=== PATIENT | male | born 1970 | race Hispanic/Latino ===

== ENCOUNTER 2023-03-10 16:59 | Emergency (ER) | payer SELFPAY ==
--- OUTSIDE RECORDS SUMMARY | 2023-03-10 17:02 | XMS REPORT | Continuity of Care Document ---
:1970 Author Organization [facility] t Address [address] [facility] [address] [place] [address] Care Team Providers Name Role Phone DERIAN RODRÍGUEZ Primary Care Physician Unavailable MARTIN [address] Attending Clinician Unavailable DERIAN RODRÍGUEZ Attending Clinician Unavailable MILTON GONZALEZ Attending Clinician Unavailable JAMES JEAN Attending Clinician Unavailable EVONNE OSEGUERA Attending Clinician Unavailable LEA MOLINA Attending Clinician Unavailable TU GUPTA Attending Clinician Unavailable ANNABELLA WEISS Attending Clinician Unavailable VIVIAN WHALEN Attending Clinician Unavailable SAHIL CORTES Attending Clinician Unavailable AURELIA NEWELL Attending Clinician Unavailable MANISHA PERKINS Attending Clinician UnavailALLA Cardoso Attending Clinician Unavailable Payers Payer Name Policy Type Policy Number Effective Date Expiration Date S ource Problems This patient has no known problems. Allergies, Adverse Reactions, Alerts This patient has no known allergies or adverse reactions. Social History Social Habit Start Date Stop Date Quantity Comments Source Sexual orientation Method ist [facility] Gender identity [facility] History of Social 2019-04-18 2019-04-[address] function 00:00:00 00:00:00 Hospital Tobacco use and 2018-12-04 2018-12-04 Smokeless [facility]oroastrianism exposure 00:00:00 00:00:00 tobacco non-user Hospital Alcohol intake 2018-12-04 2018-12-04 Current [facility]oroastrianism 00:00:00 00:00:00 non-drinker of Hospital alcohol (finding) Sex Assigned At [birth year] [facility] 00:00:00 00:00:00 Hospital Smoking Status Start Date Stop Date Source Never smoked tobacco [facility] Medications This patient has no known medications. Procedures This patient has no known procedures. Encounters Start End Encounter Admission Attending Care Care Encounter Source Date/Time Date/Time Type Type Clinicians Facility Department ID 2023-02-21 2023-02-21 Outpatient MILLICENTJUSTICE, [facility] [id number] [place] 00:00:00 00:00:00 [facility] 2023-02-20 2023-02-20 [facility] [id number] [place] 00:00:00 00:00:00 DERIAN Odell 2022-12-16 2022-12-16 Outpatient [facility] [id number] [place] 00:00:00 00:00:00 [facility] 2022-12-13 2022-12-13 Outpatient [facility] [id number] [place] 00:00:00 00:00:00 [facility] 2022-12-13 2022-12-13 Outpatient [facility] [id number] [place] 00:00:00 00:00:00 [facility] 2022-12-13 2022-12-13 [facility] [id number] [place] 00:00:00 00:00:00 [facility] 2022-11-28 2022-11-28 [facility] [id number] [place] 10:07:48 12:15:29 DERIAN Odell 2022-11-28 2022-11-28 [facility] [id number] [place] 11:08:55 11:42:58 DERIAN Healt 2022-11-28 2022-11-28 Outpatient [facility] [id number] [place] 10:22:05 11:14:07 [facility] 2022-11-25 2022-11-25 [facility] [id number] [place] 00:00:00 00:00:00 [facility] 2022-11-23 2022-11-23 [facility] [id number] [place] 00:00:00 00:00:00 DERIAN Healt 2022-11-03 2022-11-03 [facility] [id number] [place] 00:00:00 00:00:00 DERIAN Healre[facility]undo 2022-10-17 2022-10-17 [facility] [id number] [place] 00:00:00 00:00:00 [facility] 2022-10-05 2022-10-05 Outpatient [facility] [id number] [place] 00:00:00 00:00:00 [facility] 2022-10-04 2022-10-04 Outpatient WAYNERTHIAGO, [facility] [id number] [place] 00:00:00 00:00:00 [facility] 2022-09-19 2022-09-19 Outpatient MARCOS, [facility] [id number] [place] 11:22:38 14:35:07 DERIAN Healt 2022-09-19 2022-09-19 Outpatient ANA ROSA, [facility] [id number] [place] 12:20:23 12:59:48 [facility] 2022-09-19 2022-09-19 Outpatient LAZARD, [facility] [id number] [place] 09:35:59 11:02:53 [facility] 2022-09-05 2022-09-05 Outpatient MARCOS, [facility] [id number] [place] 00:00:00 00:00:00 DERIAN Healt 2022-09-02 2022-09-02 Outpatient 3 MARCOS, [facility] [id number] [place] 09:28:01 13:04:24 [facility] 2022-[facility]-02 2022-09-02 Outpatient OKOH, [facility] [id number] [place] 11:53:32 11:53:36 [facility] 2022-09-02 2022-09-02 Outpatient MARCOS, [facility] [id number] [place] 00:00:00 00:00:00 DERIAN Healt 2021-03-02 2021-03-02 Outpatient ALONSO [facility] [id number] [place] 00:00:00 00:00:00 [facility] 2021-02-23 Outpatient ANNABELLA WEISS [facility] [id number] [place] 10:20:58 11:16:05 [facility] 2021-02-23 2021-02-23 Outpatient ANNABELLA WEISS [facility] [id number] [place] 08:56:28 09:52:40 [facility] 2021-02-23 2021-02-23 Outpatient ANNABELLA WEISS [facility] [id number] [place] 00:00:00 00:00:00 [facility] 2021-02-22 2021-02-22 Outpatient KOBY, [facility] [id number] [place] 10:54:45 [facility]09:[facility] 2021-01-15 Emergency SOPHIA, [facility] [id number] [place] 02:51:00 04:05:00 [facility] 2021-01-04 2021-01-04 Emergency REECE, [facility] [id number] [place] 00:47:00 11:25:00 [facility] 2021-01-04 2021-01-04 [facility] [id number] [place] 06:44:00 06:44:[facility] 2021-01-04 Emergency REECE, [facility] [id number] [place] 02:55:32 02:55:32 [facility] 2020-11-10 2020-11-10 Emergency KURTZ, [facility] [id number] [place] 17:49:00 23:32:00 [facility] 2019-10-30 2019-10-30 Outpatient [facility] [id number] [place] 00:00:00 00:00:00 [facility] 2019-10-08 2019-10-08 Outpatient [facility] [id number] [place] 00:00:00 00:00:00 [facility] 2019-10-08 2019-10-08 Outpatient [facility] [id number] [place] 00:00:00 00:00:00 [facility] 2019-08-29 2019-08-29 Outpatient [facility] [id number] [place] 00:00:00 00:00:00 [facility] 2019-08-14 2019-08-14 Outpatient [facility] [id number] [place] 00:00:00 00:00:00 [facility] 2019-07-31 2019-07-31 Outpatient [facility] [id number] [place] 14:28:05 14:28:05 Health 2019-07-22 2019-07-22 Outpatient [facility] [id number] [place] 00:00:00 00:00:00 [facility] 2019-07-20 2019-07-20 Emergency [facility] [id number] [place] 01:31:16 01:31:16 Health 2019-07-19 2019-07-19 Emergency [facility] [id number] [place] 23:25:10 23:25:10 Health 2019-07-19 2019-07-19 Outpatient [facility] [id number] [place] 00:00:00 00:00:00 [facility] 2019-07-17 2019-07-17 Outpatient [facility] [id number] [place] 00:00:00 00:00:00 [facility] 2019-07-17 2019-07-17 Outpatient [facility] [id number] [place] 00:00:00 00:00:00 [facility] 2019-07-16 2019-07-16 Outpatient [facility] [id number] [place] 15:21:20 15:21:20 Health 2019-07-16 2019-07-16 Outpatient [facility] [id number] [place] 13:27:29 13:27:29 Health 2019-07-16 2019-07-16 Outpatient [facility] [id number] [place] 00:00:00 00:00:00 [facility] 2019-07-10 2019-07-10 Outpatient [facility] [id number] [place] 10:26:37 10:26:37 [facility] 2019-07-10 2019-07-10 Outpatient [facility] [id number] [place] 08:40:40 08:40:40 [facility] 2019-07-10 2019-07-10 Outpatient [facility] [id number] [place] 00:00:00 00:00:00 [facility] 2019-06-28 2019-06-28 Emergency [facility] [id number] [place] 13:33:59 13:33:59 Health 2019-06-28 2019-06-28 Emergency [facility] [id number] [place] 13:27:22 13:27:22 Health 2019-06-28 2019-06-28 Emergency [facility] [id number] [place] 13:26:37 13:26:37 [facility] 2019-06-28 2019-06-28 Inpatient [facility] [id number] [place] 12:51:23 12:51:23 Health 2018-12-12 2018-12-12 Outpatient [facility] [id number] [place] 00:00:00 00:00:00 [facility] 2018-11-07 2018-11-07 Outpatient [facility] [id number] [place] 00:00:00 00:00:00 [facility] 2018-11-07 2018-11-07 Outpatient [facility] [id number] [place] 00:00:00 00:00:00 [facility] 2018-11-07 2018-11-07 Outpatient [facility] [id number] [place] 00:00:00 00:00:00 [facility] 2018-10-31 2018-10-31 Outpatient [facility] [id number] [place] 14:49:27 14:49:27 Health 2018-10-30 2018-10-30 Outpatient [facility] [id number] [place] 00:00:00 00:00:00 Health 2018-09-20 2018-09-20 Outpatient [facility] [id number] [place] 14:01:56 14:01:56 Health 2018-07-17 2018-07-17 Outpatient [facility] [id number] [place] 00:00:00 00:00:00 [facility] 2018-07-12 2018-07-12 Outpatient [facility] [id number] [place] 14:38:09 14:38:09 [facility] 2018-06-25 2018-06-25 Outpatient [facility] [id number] [place] 00:00:00 00:00:00 [facility] 2018-06-19 2018-06-19 Outpatient [facility] [id number] [place] 00:00:00 00:00:00 [facility] 2018-06-18 2018-06-18 Outpatient [facility] [id number] [place] 00:00:00 00:00:00 [facility] 2018-06-14 2018-06-14 Outpatient [facility] [id number] [place] 14:49:45 14:49:45 [facility] 2018-06-14 2018-06-14 Outpatient [facility] [id number] [place] 09:39:19 09:39:19 [facility] 2018-06-13 2018-06-13 Outpatient [facility] [id number] [place] 00:00:00 00:00:00 [facility] 2018-05-28 2018-05-28 Outpatient [facility] [id number] [place] 15:08:59 15:08:59 [facility] 2018-04-23 2018-04-23 Outpatient [facility] [id number] [place] 13:43:14 13:43:14 Health 2018-04-23 2018-04-23 Outpatient [facility] [id number] [place] 13:26:14 13:26:14 [facility] 2018-04-23 2018-04-23 Outpatient [facility] [id number] [place] 13:03:05 13:03:05 Health Results Test Description Test Time Test Comments Results Result Comments Source RPR Ser-Titr 2022-09-04 13:17:23 Test Item Value Reference Range Interpretation Comme nts T pallidum Ab Ser Ql Aggl (test code = 50840-4) NEGATIVE Negati ve, Equivocal Reagin+T pallidum IgG+IgM SerPl-Imp (test code = NEGATIVE Negat caroline 93957-2) HHSHIV 1+2 Ab+HIV1 p24 Ag SerPl Ql [id number] 15:06:23 Test Item Value Reference Range Interpretation Comments HIV 1+2 Ab+HIV1 p24 Ag SerPl Ql [place] NEGATIVE Negative (test code = 16351-4) [facility]
[2023-03-10] MEDS ORDERED: HYDROCODONE/APAP 7.5/325 MG TAB ONE (17:32)
--- NOTE | 2023-03-10 17:36 | RAD REPORT ---
EXAM DESCRIPTION: CT - CTHCSPWOC - 03/10/2023 5:20 pm CLINICAL HISTORY: Trauma, head and neck injury. TRAUMA COMPARISON: No comparisons TECHNIQUE: Axial 5 mm thick images of the head were obtained. Axial 2 mm thick images of the cervical spine were obtained with sagittal and coronal reconstruction images generated and reviewed. All CT scans are performed using dose optimization technique as appropriate and may include automated exposure control or mA/KV adjustment according to patient size. FINDINGS: CT HEAD WITHOUT CONTRAST: No acute hemorrhage, hydrocephalus or extra-axial collection is identified.No areas of brain edema or midline shift. Left frontal scalp laceration. The paranasal sinuses and mastoids are clear.The calvarium is intact. CT CERVICAL SPINE WITHOUT CONTRAST: Wedge compression deformities at C3, C4, and C5 appear chronic. No discrete fracture line.No preverte bral soft tissues swelling is identified. IMPRESSION: No acute intracranial or cervical spine findings.
--- NOTE | 2023-03-10 17:37 | RAD REPORT ---
EXAM DESCRIPTION: CT - CTFB CLINICAL HISTORY: TRAUMA COMPARISON: No comparisons TECHNIQUE: Axial 2 mm thick images of the face were obtained with sagittal and coronal reconstructio n images. All CT scans are performed using dose optimization technique as appropriate and may include automated exposure control or mA/KV adjustment according to patient size. FINDINGS: No acute facial bone fracture is seen.The mandible is intact. The globes and orbital contents are grossly unremarkable.The paranasal sinuses and mastoids are clear . Mild ethmoid air cell thickening. Mild circumferential thickening in the maxillary sinuses . IMPRESSION: Negative for facial bone fracture.
[2023-03-10] MEDS ORDERED: MORPHINE 4 MG/ML SYR ONE (17:44)
[2023-03-10] MEDS ORDERED: BUPIVACAINE 0.5% PF 10 ML VIAL ONE (18:00)
--- NOTE | 2023-03-10 18:34 | EDPHYS ---
Physician Documentation [facility] Name: Jerry Dhillon Age: 52 yrs Sex: Male : 1970 Arrival Date: 03/10/2023 Time: 16:59 Bed 12 Private MD: ED Physician Donaldo Caba HPI: 03/10 17:29 This 52 yrs old Male presents to ER via Ambulatory with complaints of Head rt Injury-Adult. 17:29 Patient presents to the ED with a head injury. Patient was opening up in attic door rt when it fell on his head hitting his frontal region. It caused him to fall down to the ground. Denies any neck pain. He states that he was seeing black at that time but denies complete loss of consciousness. Denies other acute complaints at this time. Symptoms are moderate severity, no other aggravating alleviating factors. Historical: - Allergies: 17:03 No Known Allergies; aa5 - PMHx: 17:03 Diabetes mellitus; aa5 - Immunization history:: Last tetanus immunization: unknown. - Social history:: Smoking status: Patient denies any tobacco usage or history of. - Family history:: not pertinent. ROS: 17:29 Constitutional: Negative for fever, chills, and weight loss, Cardiovascular: Negative rt for chest pain, palpitations, and edema, Respiratory: Negative for shortness of breath, cough, wheezing, and pleuritic chest pain, Abdomen/GI: Negative for abdominal pain, nausea, vomiting, diarrhea, and constipation, Psych: Negative for depression, anxiety, suicide ideation, homicidal ideation, and hallucinations. 17:29 Skin: Positive for laceration(s), Negative for erythema. 17:29 Neuro: Positive for headache, Negative for loss of consciousness. Exam: 17:29 Constitutional: This is a well developed, well nourished patient who is awake, alert, rt and in no acute distress. Neck: Trachea midline, no thyromegaly or masses palpated, and no cervical lymphadenopathy. Supple, full range of motion without nuchal rigidity, or vertebral point tenderness. No Meningismus. Chest/axilla: Normal chest wall appearance and motion. Nontender with no deformity. No lesions are appreciated. Cardiovascular: Regular rate and rhythm with a normal S1 and S2. No gallops, murmurs, or rubs. Normal PMI, no JVD. No pulse deficits. Respiratory: Lungs have equal breath sounds bilaterally, clear to auscultation and percussion. No rales, rhonchi or wheezes noted. No increased work of breathing, no retractions or nasal flaring. Abdomen/GI: Soft, non-tender, with normal bowel sounds. No distension or tympany. No guarding or rebound. No evidence of tenderness throughout. MS/ Extremity: Pulses equal, no cyanosis. Neurovascular intact. Full, normal range of motion. Neuro: Awake and alert, GCS 15, oriented to person, place, time, and situation. Cranial nerves II-XII grossly intact. Motor strength 5/5 in all extremities. Sensory grossly intact. Cerebellar exam normal. Normal gait. Psych: Awake, alert, with orientation to person, place and time. Behavior, mood, and affect are within normal limits. 17:29 Head/face: 6 cm laceration to the frontal region, no active bleeding, no other external evidence of trauma. Vital Signs: 17:01 BP 148 / 96; Pulse 86; Resp 18 S; Temp 97.5(TE); Pulse Ox 96% on R/A; Weight 63.5 kg aa5 (R); [place] Coma Score: 17:01 Eye Response: spontaneous(4). Motor Response: obeys commands(6). Verbal Response: aa5 oriented(5). Total: 15. Laceration: 19:16 Wound Repair of 6cm ( 2.4in ) subcutaneous laceration to top of head. Skin/tissue flap rt noted.. No damage to the galea, only appears to violate the skin. Distal neuro/vascular/tendon intact. Anesthesia: Wound infiltrated with 2 mls of 0.5% marcaine. Wound prep: Copious irrigation. Skin closed with 10 [place] using staple gun. Dressed with 4x4's. Patient tolerated well. MDM: 17:04 Patient medically screened. rt 19:16 Differential diagnosis: Hematoma on Laceration of Intracranial bleed- Concussion. Data rt reviewed: vital signs, nurses notes. Independent interpretation of the following test(s) in the Emergency Department CT Scan: My interpretation is No cerebral hemorrhage seen on interpretation of the CT scan images. Care significantly affected by the following chronic conditions: Diabetes. Counseling: I had a detailed discussion with the patient and/or guardian regarding: the historical points, exam findings, and any diagnostic results supporting the discharge/admit diagnosis, radiology results, the need for outpatient follow up. ED course: Up-to-date on tetanus immunization. 03/10 17:10 Order name: CT Head C Spine; Complete Time: 17:41 rt 03/10 17:10 Order name: Facial Bones W/O Con CT; Complete Time: 17:41 rt 03/10 17:10 Order name: Wound Care; Complete Time: 18:23 rt Administered Medications: 17:40 Drug: morphine IM 4 mg Route: IM; Site: left deltoid; ss 18:23 Follow up: Response: No adverse reaction; Pain is decreased; RASS: Alert and Calm (0) ss Disposition Summary: 03/10/23 18:33 Discharge Ordered Location: Home rt Problem: new rt Symptoms: have improved rt Condition: Stable rt Diagnosis - Laceration without foreign body of scalp rt Followup: rt - With: Private Physician - When: 10 - 14 days - Reason: Staple/Suture removal Discharge Instructions: - Discharge Summary Sheet rt - Laceration Care, Adult rt Forms: - Work release form ss - Medication Reconciliation Form rt - Thank You Letter rt - Antibiotic Education rt - Prescription Opioid Use rt - Patient Portal Instructions rt Signatures: Dispatcher [employer] Manda Gutierrez RN RN aa5 Sarah Canales RN RN ss Donaldo Caba MD MD rt
--- NOTE | 2023-03-10 18:34 | ER ---
Nurse's Notes [facility] Name: Jerry Dhillon Age: 52 yrs Sex: Male : 1970 Arrival Date: 03/10/2023 Time: 16:59 Bed 12 Private MD: Diagnosis: Laceration without foreign body of scalp Presentation: 03/10 17:01 Chief complaint: Patient states: attic door opened and hit his head, negative LOC, aa5 states "I was seeing black when it happened". Coronavirus screen: At this time, the client does not indicate any symptoms associated with coronavirus-19. Ebola Screen: Patient denies travel to an Ebola-affected area in the 21 days before illness onset. Mechanism of Injury: resulted from a direct blow, a heavy object. Initial Sepsis Screen: Does the patient meet any 2 criteria? No. Patient's initial sepsis screen is negative. Does the patient have a suspected source of infection? No. Patient's initial sepsis screen is negative. Risk Assessment: Do you want to hurt yourself or someone else? Patient reports no desire to harm self or others. 17:01 Acuity: JONI 3 aa5 17:01 Method Of Arrival: Ambulatory aa5 Historical: - Allergies: 17:03 No Known Allergies; aa5 - PMHx: 17:03 Diabetes mellitus; aa5 - Immunization history:: Last tetanus immunization: unknown. - Social history:: Smoking status: Patient denies any tobacco usage or history of. - Family history:: not pertinent. Screenin:[address] [facility] ED Fall Risk Assessment (Adult) History of falling in the last 3 months, ss including since admission No falls in past 3 months (0 pts). Abuse screen: Denies threats or abuse. Denies injuries from another. Nutritional screening: No deficits noted. Tuberculosis screening: Never had TB. Assessment: 17:45 General: Appears in no apparent distress. comfortable, Behavior is calm, cooperative. ss Neuro: Level of Consciousness is awake, alert, obeys commands, Oriented to person, place, time, situation. Respiratory: Airway is patent Respiratory effort is even, unlabored. Derm: Skin is pink, warm \\T\\ dry. normal. Injury Description: Laceration sustained to top of head is 2.6 to 7.5 cm long, was sustained 30-60 minutes ago. a small amount of bleeding noted at this time. 18:23 Reassessment: Cleaned wound with hibiclens, saline and peroxide to rid of all dried ss blood and debris. Pt tolerated well. Friend remains at bedside. Awaiting for laceration repair. Pain: Complains of pain in top of head Pain currently is 4 out of 10 on a pain scale. Neuro: Level of Consciousness is awake, alert. Vital Signs: 17:01 BP 148 / 96; Pulse 86; Resp 18 S; Temp 97.5(TE); Pulse Ox 96% on R/A; Weight 63.5 kg aa5 (R); [place] Coma Score: 17:01 Eye Response: spontaneous(4). Motor Response: obeys commands(6). Verbal Response: aa5 oriented(5). Total: 15. ED Course: 16:59 Patient arrived in ED. mr 17:00 Donaldo Caba MD is Attending Physician. rt 17:01 Arm band placed on. aa5 17:03 Triage completed. aa5 17:22 CT Head C Spine In Process Unspecified. EDMS 17:22 Facial Bones W/O Con CT In Process Unspecified. EDMS 17:33 Sarah Canales, SILVER is Primary Nurse. ss 17:45 Patient has correct armband on for positive identification. ss 18:50 Assist provider with laceration repair on top of head that was between 2.6 to 7.5 cm ss using sweetie. Set up tray. Performed by Donaldo Caba MD Patient tolerated well. Patient did not have IV access during this emergency room visit. Administered Medications: 17:40 Drug: morphine IM 4 mg Route: IM; Site: left deltoid; ss 18:23 Follow up: Response: No adverse reaction; Pain is decreased; RASS: Alert and Calm (0) ss Medication: 17:45 VIS not applicable for this client. ss Outcome: 18:33 Discharge ordered by . rt 18:50 Discharged to home ambulatory. ss 18:50 Condition: good 18:50 Discharge instructions given to patient, friend, Instructed on discharge instructions, follow up and referral plans. wound care, Demonstrated understanding of instructions, follow-up care. 18:50 Patient left the ED. ss Signatures: Dispatcher [employer] [facility] Dorcas eWbsterManda RN RN aa5 Canales, Sarah, RN RN ss [place], Donaldo, MD MD rt
[2023-03-10 21:37] VITALS: BP 148/96; TEMP 97.5; O2SAT 96
== END 2023-03-10 18:50 | disposition home or self-care (01) ==
LOC: ER 16:59
PROC: 0HQ0XZZ Repair Scalp Skin, External Approach (ICD-10-PCS; principal; 2023-03-10)
DX: S01.01XA Laceration without foreign body of scalp, initial encounter (principal)
CPT/HCPCS: 70450; 70486; 72125; 76377; 96372; 99284

== ENCOUNTER 2023-03-30 11:04 | Emergency (ER) | payer SELFPAY ==
--- OUTSIDE RECORDS SUMMARY | 2023-03-30 11:08 | XMS REPORT | Continuity of Care Document ---
:1970 Author Organization [facility] Address [address] [place] [address] Care Team Providers Name Role Phone DERIAN RODRÍGUEZ Primary Care Physician Unavailable WILBER MITCHELL Attending Clinician Unavailable MARTIN [address] Attending Clinician Unavailable DERIAN [...] Quantity Comments Source Sexual orientation Method ist [facility] Gender identity [facility]vism [facility] History of Social 2019-04-18 2019-04-[address] function 00:00:00 00:00:00 Hospital Alcohol intake 2018-12-04 2018-12-04 Current Alevism 00:00:00 00:00:00 non-drinker of Hospital alcohol (finding) Tobacco use and 2018-12-04 2018-12-04 Smokeless Alevism exposure 00:00:00 00:00:00 tobacco non-user Hospital Sex Assigned At [birth year] Alevism 00:00:00 00:00:00 Hospital Smoking Status Start Date Stop Date Source Never smoked tobacco Alevism [facility] Medications This patient has no known medications. Procedures This patient has no known procedures. Encounters Start End Encounter Admission Attending Care Care Encounter Source Date/Time Date/Time Type Type Clinicians Facility Department ID 2023-03-16 2023-03-16 Emergency STEPHENON [facility] [id number] [place] 16:47:00 19:02:00 [facility] 2023-02-21 2023-02-21 [id number] [place] 00:00:00 00:00:00 [facility] 2023-02-20 2023-02-20 [facility] [id number] [place] 00:00:00 00:00:00 DERIAN Odell 2022-12-16 2022-12-16 Outpatient [facility] [id number] [place] 00:00:00 00:00:00 [facility] 2022-12-13 2022-12-13 [facility] [id number] [place] 00:00:00 00:00:00 [facility] 2022-12-13 2022-12-13 Outpatient [facility] [id number] [place] 00:00:00 00:00:00 [facility] 2022-12-13 2022-12-13 Outpatient [facility] [id number] [place] 00:00:00 00:00:00 [facility] 2022-11-28 2022-11-28 [facility] [id number] [place] 10:07:48 12:15:29 DERIAN Odell 2022-11-28 2022-11-28 [facility] [id number] [place] 11:08:55 11:42:58 DERIAN Odell 2022-11-28 2022-11-28 Outpatient [facility] [id number] [place] 10:22:05 11:14:07 [facility] 2022-11-25 2022-11-25 [facility] [id number] [place] 00:00:00 00:00:00 [facility] 2022-11-23 2022-11-23 [facility] [id number] [place] 00:00:00 00:00:00 DERIAN Odell 2022-11-03 2022-11-03 Outpatient MARCOS, [facility] [id number] [place] 00:00:00 00:00:00 [facility] 2022-10-17 2022-10-17 Outpatient SAGRARIOARD, [facility] [id number] [place] 00:00:00 00:00:00 [facility] 2022-10-05 2022-10-05 Outpatient [facility] [id number] [place] 00:00:00 00:00:00 [facility] 2022-10-04 2022-10-04 Outpatient JAD, [facility] [id number] [place] 00:00:00 00:00:00 [facility] 2022-09-19 2022-09-19 Outpatient MARCOS, [facility] [id number] [place] 11:22:38 14:35:07 DERIAN [facility] 2022-09-19 2022-09-19 Outpatient ANA ROSA, [facility] [id number] [place] 12:20:23 12:59:48 [facility] 2022-09-19 2022-09-19 Outpatient SAGRARIOARD, [facility] [id number] [place] 09:35:59 11:02:53 [facility] 2022-09-05 2022-09-05 Outpatient MARCOS, [facility] [id number] [place] 00:00:00 00:00:00 DERIAN [facility] 2022-09-02 2022-09-02 Outpatient 3 MARCOS, [facility] [id number] [place] 09:28:01 13:04:24 DERIAN [facility] 2022-09-02 2022-09-02 Outpatient OKOH, [facility] [id number] [place] 11:53:32 11:53:36 LEA [facility] 2022-09-02 2022-09-02 Outpatient MARCOS, [facility] [id number] [place] 00:00:00 00:00:00 DERIAN [facility] 2021-03-02 2021-03-02 Outpatient ALONSO [facility] [id number] [place] 00:00:00 00:00:00 [facility] 2021-02-23 2021-02-23 Outpatient ANNABELLA WEISS [facility] [id number] [place] 10:20:58 11:16:05 [facility] 2021-02-23 2021-02-23 Outpatient ANNABELLA WEISS [facility] [id number] [place] 08:56:28 09:52:40 [facility] 2021-02-23 2021-02-23 Outpatient ANNABELLA WEISS [facility] [id number] [place] 00:00:00 00:00:00 [facility] 2021-02-22 2021-02-22 Outpatient KOBY, [facility] [id number] [place] 10:54:45 12:09:08 [facility] 2021-01-15 2021-01-15 [facility] [id number] [place] 02:51:00 04:05:00 [facility] 2021-01-04 2021-01-04 [facility] [id number] [place] 00:47:00 11:25:00 [facility] 2021-01-04 2021-01-04 Emergency GREGORIO, [facility] [id number] [place] 06:44:00 06:44:00 [facility]-01[facility]04 2021-01-04 Emergency REECE, [facility] [id number] [place] 02:55:32 02:55:32 [facility] 2020-11-10 2020-11-10 Emergency KURTZ, [facility] [id number] [place] 17:49:00 23:32:00 [facility] 2019-10-30 2019-10-30 Outpatient [facility] [id number] [place] 00:00:00 00:00:00 [facility] 2019-10-08 2019-10-08 Outpatient [facility] [id number] [place] 00:00:00 00:00:00 [facility] 2019-10-08 2019-10-08 Outpatient [facility] [id number] [place] 00:00:00 00:00:00 [facility] 2019-08-29 2019-08-29 Outpatient [facility] [id number] [place] 00:00:00 00:00:00 [facility] 2019-08-14 2019-08-14 Outpatient [facility] [id number] [place] 00:00:00 00:00:00 Health 2019-07-31 2019-07-31 Outpatient [facility] [id number] [place] 14:28:05 14:28:05 Health 2019-07-22 2019-07-22 Outpatient [facility] [id number] [place] 00:00:00 00:00:00 [facility] 2019-07-20 2019-07-20 Emergency [facility] [id number] [place] 01:31:16 01:31:16 Health 2019-07-19 2019-07-19 Emergency [facility] [id number] [place] 23:25:10 23:25:10 Health 2019-07-19 2019-07-19 Outpatient [facility] [id number] [place] 00:00:00 00:00:00 [facility] 2019-07-17 2019-07-17 Outpatient [facility] [id number] [place] 00:00:00 00:00:00 [facility] 2019-07-17 2019-07-17 Outpatient [facility] [id number] [place] 00:00:00 00:00:00 [facility] 2019-07-16 2019-07-16 Outpatient [facility] [id number] [place] 15:21:20 15:21:20 Health 2019-07-16 2019-07-16 Outpatient [facility] [id number] [place] 13:27:29 13:27:29 [facility] 2019-07-16 2019-07-16 Outpatient [facility] [id number] [place] 00:00:00 00:00:00 [facility] 2019-07-10 2019-07-10 Outpatient [facility] [id number] [place] 10:26:37 10:26:37 Health 2019-07-10 2019-07-10 Outpatient [facility] [id number] [place] 08:40:40 08:40:40 Health 2019-07-10 2019-07-10 Outpatient [facility] [id number] [place] 00:00:00 00:00:00 [facility] 2019-06-28 2019-06-28 Emergency [facility] [id number] [place] 13:33:59 13:33:59 Health 2019-06-28 2019-06-28 Emergency [facility] [id number] [place] 13:27:22 13:27:22 Health 2019-06-28 2019-06-28 Emergency [facility] [id number] [place] 13:26:37 13:26:37 Health 2019-06-28 2019-06-28 Inpatient [facility] [id number] [place] 12:51:23 12:51:23 Health 2018-12-12 2018-12-12 Outpatient [facility] [id number] [place] 00:00:00 00:00:00 [facility] 2018-11-07 2018-11-07 Outpatient [facility] [id number] [place] 00:00:00 00:00:00 [facility] 2018-11-07 2018-11-07 Outpatient [facility] [id number] [place] 00:00:00 00:00:00 [facility] 2018-11-07 2018-11-07 Outpatient [facility] [id number] [place] 00:00:00 00:00:00 [facility] 2018-10-31 2018-10-31 Outpatient [facility] [id number] [place] 14:49:27 14:49:27 Health 2018-10-30 2018-10-30 Outpatient [facility] [id number] [place] 00:00:00 00:00:00 [facility] 2018-09-20 2018-09-20 Outpatient [facility] [id number] [place] 14:01:56 14:01:56 [facility] 2018-07-17 2018-07-17 Outpatient [facility] [id number] [place] 00:00:00 00:00:00 [facility] 2018-07-12 2018-07-12 Outpatient [facility] [id number] [place] 14:38:09 14:38:09 [facility] 2018-06-25 2018-06-25 Outpatient [facility] [id number] [place] 00:00:00 00:00:00 [facility] 2018-06-19 2018-06-19 Outpatient [facility] [id number] [place] 00:00:00 00:00:00 [facility] 2018-06-18 2018-06-18 Outpatient [facility] [id number] [place] 00:00:00 00:00:00 [facility] 2018-06-14 2018-06-14 Outpatient [facility] [id number] [place] 14:49:45 14:49:45 [facility] 2018-06-14 2018-06-14 Outpatient [facility] [id number] [place] 09:39:19 09:39:19 [facility] 2018-06-13 2018-06-13 Outpatient [facility] [id number] [place] 00:00:00 00:00:00 [facility] 2018-05-28 2018-05-28 Outpatient [facility] [id number] [place] 15:08:59 15:08:59 [facility] 2018-04-23 2018-04-23 Outpatient [facility] [id number] [place] 13:43:14 13:43:14 Health 2018-04-23 2018-04-23 Outpatient [facility] [id number] [place] 13:26:14 13:26:14 Health 2018-04-23 2018-04-23 Outpatient [facility] [id number] [place] 13:03:05 13:03:05 Health Results Test Description Test Time Test Comments Results Result Comments Source RPR Ser-Titr 2022-09-04 13:17:23 Test Item Value Reference Range Interpretation Comme nts T pallidum Ab Ser Ql Aggl (test code = 91559-3) NEGATIVE Negati ve, Equivocal Reagin+T pallidum IgG+IgM SerPl-Imp (test code = NEGATIVE Negat caroline 21375-8) HHSHIV 1+2 Ab+HIV1 p24 Ag SerPl Ql [id number] 15:06:23 Test Item Value Reference Range Interpretation Comments HIV 1+2 Ab+HIV1 p24 Ag SerPl Ql IA NEGATIVE Negative (test code = 05589-1) [facility]
--- NOTE | 2023-03-30 11:17 | EDPHYS ---
Physician Documentation [facility] Name: Jerry Dhillon Age: 53 yrs Sex: Male : 1970 Arrival Date: 03/30/2023 Time: 11:04 Bed Waiting Private MD: ED Physician Kamran Geronimo HPI: 03/30 11:20 This 53 yrs old Male presents to ER via Ambulatory with complaints of Staple kb Removal. 11:20 The patient has sweetie on the left frontal area. Previous treatment: The patient was kb initially treated on March 10, 2023, the care was rendered at [facility], Treatment type: The patient's original treatment included sweetie. Sutures/sweetie progress: The patient has no c/o's. The wound is well-healing with no redness, swelling, discharge, or dehiscence reported. The patient has not experienced similar symptoms in the past. The patient has been recently seen by a physician:. Historical: - Allergies: 11:19 No Known Allergies; me1 - PMHx: 11:19 diabetes mellitus; me1 - Immunization history:: Adult Immunizations unknown. - Social history:: Smoking status: unknown. ROS: 11:20 Constitutional: Negative for fever, chills, and weight loss. kb 11:20 Skin: Positive for of the left frontal area, sweetie in place. 11:20 All other systems are negative. Exam: 11:20 Constitutional: This is a well developed, well nourished patient who is awake, alert, kb and in no acute distress. Head/Face: Normocephalic, atraumatic. ENT: Moist Mucous membranes Respiratory: Respirations even and unlabored. No increased work of breathing. Talking in full sentences MS/ Extremity: Pulses equal, no cyanosis. Neurovascular intact. Full, normal range of motion. Neuro: Awake and alert, GCS 15, oriented to person, place, time, and situation. Moves all extremities. Normal gait. 11:20 Skin: Wound recheck: Staple laceration closure: the wound is healing well, the edges are well approximated, no evidence of dehiscence, no drainage, no erythema, no swelling. Vital Signs: 11:19 BP 131 / 95; Pulse 74; Resp 16; Temp 98.1(O); Pulse Ox 98% ; Weight 63.5 kg; me1 Procedures: 11:18 Suture/Staple removal: Removed 10 sweetie, from left frontal area, site appears well kb healed, Patient tolerated well. MDM: 11:16 Patient medically screened. kb 11:19 Data reviewed: vital signs, nurses notes. Counseling: I had a detailed discussion with kb the patient and/or guardian regarding: the historical points, exam findings, and any diagnostic results supporting the discharge/admit diagnosis, the need for outpatient follow up, a family practitioner, to return to the emergency department if symptoms worsen or persist or if there are any questions or concerns that arise at home. Administered Medications: No medications were administered Disposition: 11:27 Co-signature as Attending Physician, Kamran Geronimo MD I reviewed the patient's care rn provided by the Advanced Practice Provider and agree with the diagnosis and treatment plan. Disposition Summary: 03/30/23 11:16 Discharge Ordered Location: Home kb Condition: Stable kb Diagnosis - Encounter for removal of sutures - sweetie kb Followup: kb - With: Emergency Department - When: As needed - Reason: Worsening of condition Followup: kb - With: Private Physician - When: 2 - 3 days - Reason: Recheck today's complaints, Continuance of care, Re-evaluation by your physician Discharge Instructions: - Discharge Summary Sheet kb - Suture Removal, Care After kb Forms: - Medication Reconciliation Form kb - Thank You Letter kb - Antibiotic Education kb - Prescription Opioid Use kb - Patient Portal Instructions kb Signatures: Judi Patel FNP-C SCRIPT SUPERVISOR-Ckb Kamran Geronimo MD MD rn Eddleman, Michelle, RN RN me1 Corrections: (The following items were deleted from the chart) 11:21 11:20 Previous treatment: The patient was initially treated on March 11, 2023, the care kb was rendered at [facility], Treatment type: The patient's original treatment included sweetie, kb
--- NOTE | 2023-03-30 11:21 | ER ---
Nurse's Notes [facility] Name: Jerry Dhillon Age: 53 yrs Sex: Male : 1970 Arrival Date: 03/30/2023 Time: 11:04 Bed Waiting Private MD: Diagnosis: Encounter for removal of sutures-sweetie Presentation: 03/30 11:14 Chief complaint: Patient states: Needs sweetie removed from left front scalp. me1 Coronavirus screen:. 11:14 Method Of Arrival: Ambulatory me1 11:19 Ebola Screen: No symptoms or risks identified at this time. Initial Sepsis Screen: Does me1 the patient meet any 2 criteria? No. Patient's initial sepsis screen is negative. Does the patient have a suspected source of infection? No. Patient's initial sepsis screen is negative. Risk Assessment: Do you want to hurt yourself or someone else? Patient reports no desire to harm self or others. Onset of symptoms is unknown. 11:19 Acuity: JONI 5 me1 Triage Assessment: 11:19 General: Appears comfortable, Behavior is calm, cooperative, appropriate for age. Pain: me1 Denies pain. Historical: - Allergies: 11:19 No Known Allergies; me1 - PMHx: 11:19 diabetes mellitus; me1 - Immunization history:: Adult Immunizations unknown. - Social history:: Smoking status: unknown. Vital Signs: 11:19 BP 131 / 95; Pulse 74; Resp 16; Temp 98.1(O); Pulse Ox 98% ; Weight 63.5 kg; me1 ED Course: 11:07 Patient arrived in ED. mr 11:08 Judi Patel FNP-C is [facility]. kb 11:08 Kamran Geronimo MD is Attending Physician. kb 11:19 Triage completed. me1 11:19 Arm band placed on Patient placed in waiting room. me1 Administered Medications: No medications were administered Outcome: 11:16 Discharge ordered by . kb 11:20 Patient left the ED. me1 Signatures: Judi Patel FNP-C FNP-Ckb RiveraDorcas mr MarrToya, RN RN me1
[2023-03-30 11:25] VITALS: BP 131/95; TEMP 98.1; O2SAT 98
== END 2023-03-30 11:20 | disposition home or self-care (01) ==
LOC: ER 11:04
DX: Z48.02 Encounter for removal of sutures (principal)
CPT/HCPCS: 99281